=== PATIENT | female | born 1980 | race Caucasian/White ===

== ENCOUNTER 2019-06-08 01:59 | Emergency (ER) | payer SELFPAY ==
[2019-06-08] MEDS ORDERED: Ondansetron ODT 4 MG TAB ONE (02:08)
[2019-06-08] MEDS ORDERED: Prochlorperazine 10 MG/2 ML VIAL ONE (02:31)
== END 2019-06-08 03:01 | disposition home or self-care (01) ==
LOC: SCSER 01:59
DX: R11.2 Nausea with vomiting, unspecified (principal); T37.3X5A Adverse effect of other antiprotozoal drugs, initial encounter; K59.00 Constipation, unspecified; F41.9 Anxiety disorder, unspecified; Z79.899 Other long term (current) drug therapy
CPT/HCPCS: 96372; 99283; J0780; Q0162